=== PATIENT | male | born 1940 | race Caucasian/White ===

== ENCOUNTER 2017-01-15 08:58 | Inpatient (IN) | payer OTHER ==
[~2017-01-15] VITALS: Ht 177.8 cm; Wt 140.3 kg
--- NOTE | ~2017-01-15 | H ---
[facility] [place] [address] HISTORY AND PHYSICAL Name: OPAL BERNAL Room #: 424-P ADM IN M.R.#: [id number] Admission: 01/15/17 Attend Phys: Wilton Berman MD Discharge: Date of : 44 Report #: [id number] THIS REPORT FOR: //name// CC: Karena Berman DATE OF SERVICE: 01/15/2017 The patient is admitted to the hospital on 01/15/2017. CHIEF COMPLAINT: Right-sided back pain. HISTORY OF PRESENT ILLNESS: The patient is a 76-year-old man with history of chronic back pain. The patient comes to the hospital with back pain exacerbation. He had CT scan of the abdomen in the Emergency Room. The patient was found to have tiny 1-2 mm caliceal stone. He has no ureteral stone. He also has possible early stage pancreatitis, and possible early stage diverticulitis. However, the patient does not have left lower quadrant pain, denies epigastric pain, has good appetite, and has no nausea or vomiting. Lipase level was also normal. PAST MEDICAL HISTORY: 1. Left nephrectomy 2 years ago for renal cell carcinoma. 2. Chronic back pain. 3. Hypertension. HOME MEDICATIONS: Tylenol ER 650 mg twice a day, melatonin 1 mg tablet 3 mg at night as needed, metoprolol 25 mg b.i.d., Metamucil 660 mg b.i.d. p.r.n. FAMILY HISTORY: Reviewed and not pertinent to the patient's current condition. SOCIAL HISTORY: The patient does not smoke cigarettes and does not drink alcohol. REVIEW OF SYSTEMS: As above in HPI section, all others negative. PHYSICAL EXAMINATION: GENERAL: The patient is an elderly man who is in no apparent distress. VITAL SIGNS: Blood pressure is 146/72, heart rate is 59, respiration is 16, and temperature is 98.5. HEENT: Pupils are equal. Eye movements are normal. Sclerae are anicteric. NECK: Supple. The patient has no thyromegaly. The patient has no JVD. Carotid bruits are not appreciated. RESPIRATORY: Lungs are clear to auscultation bilaterally. Chest moves symmetrically with breathing. CARDIOVASCULAR: The patient has regular rhythm and rate. He has no murmurs, [facility] [address] [place] [address] HISTORY AND PHYSICAL Name: OPAL BERNAL Room #: [address] [place] [address]#: [id number] Admission: 01/15/17 Attend Phys: Wilton Berman MD Discharge: Date of : 44 Report #: [id number] gallops or rubs. GASTROINTESTINAL: Abdomen is soft, nondistended and nontender. Bowel sounds are present. The patient has no hepatomegaly or splenomegaly. MUSCULOSKELETAL: The patient has no deformities. Range of motion is normal. NEUROLOGIC: The patient is alert and oriented x 3. His examination is nonfocal. SKIN: The patient has no skin lesions. LABORATORY DATA: Basic metabolic profile, creatinine is 1.4. Rest of the metabolic profile is normal. Liver function tests are normal. Lipase is normal. CBC with differential is normal. Urinalysis shows mild bacteriuria, but otherwise the patient has no evidence of UTIs. ASSESSMENT AND PLAN: 1. Exacerbation of lower back pain, right-sided. We will obtain MRI for further evaluation. Physical therapist evaluation is also requested. 2. CT evidence of possible pancreatitis, but again, the patient is completely asymptomatic, and his lipase level is normal. He is unlikely to have pancreatitis. 3. Possible diverticulitis, seen on the CT scan, but the patient does not have symptoms. He has diverticulosis, and had diverticulitis in the past. We will treat him with a short course of antibiotics. 4. Hypertension. Acceptable control. 5. Morbid obesity. 6. Deep venous thrombosis prophylaxis. Radha Cervantes. By: [id number] Wilton Berman MD /nt
--- NOTE | ~2017-01-15 | D ---
[facility] [place] [address] DISCHARGE SUMMARY Name: OPAL BERNAL Room #: 424-P [facility] IN M.R.#: [id number] Admission: 01/15/17 Attend Phys: Wilton Berman MD Discharge: 01/16/17 Date of : 44 Report #: [id number] THIS REPORT FOR: //name// CC: Karena Berman DATE OF SERVICE: 01/16/2017 HISTORY OF PRESENT ILLNESS: The patient is a 76-year-old man with history of chronic back pain, who came to the hospital with exacerbation of right-sided back pain. Please refer to the admission H and P for details. In brief, initially, it was reported to me that the patient had pyelonephritis, but there is no evidence of that, based on U/A and CAT scan. The patient had questionable findings of the pancreatic on CT scan as well as possible early stage diverticulitis, but again, the patient has been completely asymptomatic in regards to this condition. His pain is located at the lower back, on the right, and he has difficulty in walking. HOSPITALIZATION COURSE: The patient was hospitalized. MRI of the back was ordered. He was started on pain medications as well as on Flexeril. The patient has claustrophobia and requested open MRI, which is not available here. Ativan was prescribed. Overnight, the patient did better. He still has back pain, but he is close to his baseline. The patient would like to go home and have MRI done as an outpatient. He is able to walk with walker. His hospital stay was uneventful, his examination is acceptable as well as his blood work. The patient will be discharged home today with close outpatient followup. Open MRI is ordered. DISCHARGE DIAGNOSES: 1. Acute exacerbation of chronic back pain, clinically better. Open MRI will be done as an outpatient. 2. Possible early-stage diverticulitis, based on CT scan. The patient has no significant symptoms. Short course of antibiotics, Cipro and Flagyl will be continued. 3. Morbid obesity. 4. Hypertension. 5. History of renal cell carcinoma, status post left nephrectomy 2 years ago, reportedly free of the disease. DISPOSITION: The patient is discharged home. [facility] [address] [place] [address] DISCHARGE SUMMARY Name: OPAL BERNAL Room #: 424-P [facility] IN [facility]#: [id number] Admission: 01/15/17 Attend Phys: Wilton Berman MD Discharge: 01/16/17 Date of : 44 Report #: [id number] FOLLOWUP PLAN: Follow up with the primary care physician in about 1 week as it is planned. By: [id number] Wilton Berman MD /nt
[2017-01-15 08:59] VITALS: BP 164/74
[2017-01-15 09:27] LABS: URINE BILIRUBIN NEGATIVE (Negative); URINE BLOOD NEGATIVE (Negative); URINE COLOR YELLOW; URINE GLUCOSE-RANDOM* NEGATIVE (Negative); URINE KETONES NEGATIVE (Negative); URINE NITRITE NEGATIVE (Negative); URINE PROTEIN (DIPSTICK) 1+ (Negative); URINE SPECIFIC GRAVITY 1.025 (1.003-1.035); URINE UROBILINOGEN 0.2 E.U./dl (0.2-1.0)
[2017-01-15 09:41] LABS: BACTERIA 1-9 Few /HPF (None Seen); CASTS None Seen /LPF (None Seen); CRYSTALS None Seen /LPF (None Seen); SQUAMOUS None Seen /LPF (0-3); URINE RBC None Seen /HPF (0-2); URINE WBC 0-5 Rare /HPF (0-5)
[2017-01-15 10:09] LABS: ABSOLUTE NEUTROPHILS 5.5 thou/uL (1.4-8.2); BASOPHILS 0.5 % (0.0-2.0); EOSINOPHILS 1.4 % (0.0-3.0); HEMATOCRIT 42.5 % (42.0-52.0); HEMOGLOBIN 14.6 gm/dL (14.0-18.0); LYMPHOCYTES 18.8 % (24.0-44.0); MCH 31.2 pg (26.0-34.0); MCHC 34.4 g/dL (28.0-37.0); MCV 90.5 fL (80.0-100.0); MONOCYTES 7.2 % (1.0-8.0); PLATELET COUNT 254 thou/uL (150-400); POLYS 72.1 % (36.0-66.0); RBC 4.69 mil/uL (4.50-6.00); RDW 12.9 % (10.5-14.5); WBC 7.6 thou/uL (4.0-11.0)
[2017-01-15 10:17] LABS: CALCIUM 9.5 mg/dL (8.5-10.1); CREATININE 1.4 mg/dL (0.7-1.3); POTASSIUM 4.3 mmol/L (3.5-5.1)
[2017-01-15 10:21] LABS: MANUAL DIFF NO
[2017-01-15 10:23] LABS: TOTAL BILIRUBIN 0.6 mg/dL (<0.1-1.0); TOTAL PROTEIN 7.9 g/dL (6.4-8.2)
[2017-01-15 13:15] VITALS: BP 148/79
[2017-01-15 13:55] VITALS: BP 146/91
[2017-01-15 13:58] VITALS: BP 146/72
[2017-01-15] MEDS ORDERED: LOPRESSOR25 PO (14:59)
[2017-01-15] MEDS ORDERED: APAP650 PO (14:59)
[2017-01-15] MEDS ORDERED: MELATONIN1 MG PO (15:01)
[2017-01-15] MEDS ORDERED: METAMUCIL660 GM PO (15:02)
[2017-01-15 17:13] VITALS: BP 147/81
[2017-01-15 19:40] VITALS: BP 143/83
[2017-01-16 01:55] VITALS: BP 143/83
[2017-01-16 03:33] VITALS: BP 129/79
[2017-01-16 07:50] VITALS: BP 131/83
[2017-01-16] MEDS ORDERED: CIPRO250 M1 PO (10:24)
[2017-01-16] MEDS ORDERED: FLAGYL500 MG PO (10:24)
[2017-01-16] MEDS ORDERED: CYCLOBENZAPRINE5 MG PO (10:26)
[2017-01-16] MEDS ORDERED: HYDROCODON-ACE1 EAC7 PO (10:26)
[2017-01-16 10:33] VITALS: BP 131/83
== END 2017-01-16 11:01 | disposition home or self-care (01) | DRG 690 ==
LOC: ER 08:58 → 4E 12:44 → EROBS 12:44 → 4E 13:58
PROVIDERS: Physician Assistant
DX: N12 Tubulo-interstitial nephritis, not specified as acute or chronic (principal); Z68.41 Body mass index [BMI] 40.0-44.9, adult; K57.92 Diverticulitis of intestine, part unspecified, without perforation or abscess without bleeding; K57.90 Diverticulosis of intestine, part unspecified, without perforation or abscess without bleeding; I10 Essential (primary) hypertension; I80.8 Phlebitis and thrombophlebitis of other sites; G89.29 Other chronic pain; M54.9 Dorsalgia, unspecified; E66.01 Morbid (severe) obesity due to excess calories; Z90.5 Acquired absence of kidney
CPT/HCPCS: 10183